=== PATIENT | male | born 1930 | race African-American/Black ===

== ENCOUNTER 2017-10-20 12:11 | Observation (INO) | payer OTHER ==
[2017-10-20 12:21] VITALS: BMI 25.7
--- NOTE | 2017-10-20 12:39 | PDOC ---
History of Present Illness - General History Source: Patient Exam Limitations: No Limitations <Lenore Rivera - Last Filed: 10/20/17 17:44> - General History Source: Patient Exam Limitations: No Limitations - History of Present Illness Initial Comments: 10/20/17 13:12 The patient is an 87 year old male with a significant past medical history of angina, COPD, prostate CA, cardiomyopathy, who presents to the emergency department [facility] complaining of chest pain that began at 10:30 am. The patient describes the chest pain as initiating on the right side, then moving to the left, then radiates to his back. He reports that he gets a headache associated with the chest pain, but does not currently endorse either symptom. The patient states that he was in rehab today when he complained of the chest pain and the nurse recommended he come be evaluated in the ED. Denies fever. Denies abdominal pain. Denies history of blood clots. Allergies: NKA Past surgical history: pacemaker Social history: No reported cigarette, alcohol, or drug use. Former cigarette smoker. PCP:unknown <Kristan Portillo - Last Filed: 10/20/17 19:11> - General Chief Complaint: Chest Pain Stated Complaint: CHEST PAIN Time Seen by Provider: 10/20/17 12:26 Past History - Past Medical History Cancer: Yes (prostate) Cardiac Disorders: (cardiomyopathy) COPD: Yes CHF: Yes - Surgical History Cardiac Surgery: Yes (pacemaker) - Immunization History Immunization Up to Date: Yes - Suicide/Smoking/Psychosocial Hx Smoking History: Unknown if ever smoked Have you smoked in the past 12 months: No Information on smoking cessation initiated: No Hx Alcohol Use: No Drug/Substance Use Hx: No Substance Use Type: None Hx Substance Use Treatment: No <Lenore Rivera - Last Filed: 10/20/17 17:44> <Kristan Portillo - Last Filed: 10/20/17 19:11> - Past Medical History Allergies/Adverse Reactions: Allergies Allergy/AdvReac Type Severity Reaction Status Date / Time No Known Allergies Allergy Verified 10/02/17 14:41 Home Medications: Ambulatory Orders Acetaminophen [Tylenol] 650 mg PO Q6H 10/20/17 Albuterol 2.5/Ipratropium 0.5 [Duoneb -] 1 neb IH QID 10/20/17 Atorvastatin Ca [Lipitor] 10 mg PO HS 10/20/17 Carvedilol [Coreg -] 25 mg PO BID 10/20/17 Cholecalciferol (Vitamin D3) [Vitamin D3 -] 5,000 unit PO DAILY 10/20/17 Digoxin 125 mcg PO DAILY 10/20/17 Docusate Sodium [Colace] 100 mg PO BID 10/20/17 Finasteride 5 mg PO DAILY 10/20/17 Fluticasone/Salmeterol [Advair 250-50 Diskus] 1 each IH BID 10/20/17 Furosemide [Lasix] 40 mg PO DAILY 10/20/17 Gabapentin 100 mg PO Q8H 10/20/17 Latanoprost 2.5 ml OU DAILY 10/20/17 Losartan Potassium 50 mg PO DAILY 10/20/17 Mag Hydrox/Al Hydrox/Simeth [Mylanta *Suspension*] 30 ml PO Q6H 10/20/17 Metolazone 2.5 mg PO DAILY 10/20/17 Oxybutynin Chloride 5 mg PO DAILY 10/20/17 Pantoprazole Sodium 40 mg PO DAILY 10/20/17 Prednisone [Deltasone] 20 mg PO DAILY 10/20/17 Warfarin Sodium [Coumadin] 4 mg PO DAILY 10/20/17 Review of Systems - Review of Systems Able to Perform ROS?: Yes Comments:: 10/20/17 13:18 GENERAL/CONSTITUTIONAL: No fever or chills. No weakness. HEAD, EYES, EARS, NOSE AND THROAT: No change in vision. No ear pain or discharge. No sore throat. CARDIOVASCULAR: (+)Chest pain. No shortness of breath. RESPIRATORY: No cough, wheezing, or hemoptysis. GASTROINTESTINAL: No nausea, vomiting, diarrhea or constipation. GENITOURINARY: No dysuria, frequency, or change in urination. MUSCULOSKELETAL: No joint or muscle swelling or pain. No neck or back pain. SKIN: No rash NEUROLOGIC: (+)Headache. No vertigo, loss of consciousness, or change in strength/sensation. ENDOCRINE: No increased thirst. No abnormal weight change. HEMATOLOGIC/LYMPHATIC: No anemia, easy bleeding, or history of blood clots. ALLERGIC/IMMUNOLOGIC: No hives or skin allergy. <Kristan Portillo - Last Filed: 10/20/17 19:11> *Physical Exam - Vital Signs Last Vital Signs Temp Pulse Resp BP Pulse Ox 97.5 F L 75 16 116/47 95 10/20/17 12:19 10/20/17 12:19 10/20/17 12:19 10/20/17 12:19 10/20/17 12:19 <Lenore Rivera - Last Filed: 10/20/17 17:44> - Vital Signs Last Vital Signs Temp Pulse Resp BP Pulse Ox 97.5 F L 75 16 116/47 95 10/20/17 12:19 10/20/17 12:19 10/20/17 12:19 10/20/17 12:19 10/20/17 12:19 - Physical Exam Comments: 10/20/17 13:19 GENERAL: Awake, alert, and fully oriented, in no acute distress HEAD: No signs of trauma EYES: PERRLA, EOMI, sclera anicteric, conjunctiva clear ENT: Auricles normal inspection, hearing grossly normal, nares patent. Moist mucosa NECK: Normal ROM, supple, no lymphadenopathy, JVD, or masses LUNGS: (+)Crackles at left lung base. Breath sounds equal, clear to auscultation bilaterally. HEART: Regular rate and rhythm, normal S1 and S2, no murmurs, rubs or gallops ABDOMEN: Soft, nontender, normoactive bowel sounds. No guarding, no rebound. No masses EXTREMITIES: Normal range of motion, no edema. No erythema or tenderness. DP/PT pulses 2+ and symmetric. Warm and well perfused. NEUROLOGICAL: Moves all extremities. Normal speech. SKIN: Warm, Dry, normal turgor, no rashes or lesions noted. <Kristan Portillo - Last Filed: 10/20/17 19:11> Heart Score/ECG Review #1 ECG reviewed & interpreted by me at: 17:45 General ECG Interpretation: Normal Rate (87) Compared to previous ECG there are: Other (paced EKG, left axis.) <Lenore Rivera - Last Filed: 10/20/17 17:44> ED Treatment Course - LABORATORY CBC & Chemistry Diagram: 10/20/17 13:01 10/20/17 13:01 <Lenore Rivera - Last Filed: 10/20/17 17:44> - LABORATORY CBC & Chemistry Diagram: 10/20/17 13:01 10/20/17 13:01 - RADIOLOGY Radiograph Interpretation: 10/20/17 15:53 Chest X-ray was reviewed by Dr. Rivera and overread by Radiology. Report: Since 10/02/2017 at 1629 hours, there is a large heart, sclerotic knob and multi lead pacemaker. There is some atelectasis at the left base. Correlation recommended. <Kristan Portillo - Last Filed: 10/20/17 19:11> Medical Decision Making - Medical Decision Making 10/20/17 12:38 87-year-old male history of hypertension CHF pacemaker afib copd chf on coumadin here from [facility] complaining of chest pain. Differential diagnoses includes pneumonia, CHF, angina or MN, plan CBC CMP EKG chest x-ray patient will likely require admission for observation rule out ACS 10/20/17 14:27 10/20/17 16:22 <Lenore Rivera - Last Filed: 10/20/17 17:44> - Medical Decision Making 10/20/17 19:11 Dr. Giles was paged at 4:36 pm and we were not paged back, decision to admit to Hospitalist. <Kristan Portillo - Last Filed: 10/20/17 19:11> *DC/Admit/Observation/Transfer - Discharge Dispostion Decision to Admit order: Yes <Lenore Rivera - Last Filed: 10/20/17 17:44> - Attestations Scribe Attestion: 10/20/17 13:20 Documentation prepared by Kristan Portillo, acting as expert medical writer for Lenore Rivera MD. <Kristan Portillo - Last Filed: 10/20/17 19:11> Diagnosis at time of Disposition: Chest pain
[2017-10-20 13:17] LABS: BASO % 0.2 % (0-2.0); EOS % 1.3 % (0-4.5); HEMATOCRIT 38.2 % (35.4-49); HEMOGLOBIN 12.8 GM/dL (11.7-16.9); LYMPH % 20.8 % (8-40); MCH 30.8 pg (25.7-33.7); MCHC 33.5 g/dl (32.0-35.9); MEAN CELL VOLUME 92.1 fl (80-96); MEAN PLT VOLUME 8.4 fl (7.5-11.1); MONO % 6.9 % (3.8-10.2); NEUT % 70.8 % (42.8-82.8); PLATELET COUNT 85 K/MM3 (134-434); RBC 4.15 M/mm3 (4.00-5.60); RDW 14.8 % (11.9-15.9); WHITE BLOOD COUNT 3.9 K/mm3 (4.0-10.0)
--- NOTE | 2017-10-20 13:20 | EKG ---
Test Reason : Blood Pressure : / mmHG Vent. Rate : 087 BPM Atrial Rate : 087 BPM P-R Int : 138 ms QRS Dur : 152 ms QT Int : 370 ms P-R-T Axes : 063 006 063 degrees QTc Int : 445 ms Atrial-sensed ventricular-paced rhythm Biventricular pacemaker detected ABNORMAL ECG WHEN COMPARED WITH ECG OF 02-OCT-2017 22:23, VENT. RATE HAS INCREASED BY 15 BPM Confirmed by AMIE CORONEL, CORDELL ([id number]) on 10/20/2017 1:20:12 PM Referred By: Confirmed By:CORDELL HOLLOWAY MD
[2017-10-20 13:50] LABS: ALBUMIN 3.2 g/dl (3.4-5.0); ANION GAP 5 (8-16); BILIRUBIN,TOTAL 0.3 mg/dL (0.2-1.0); BLOOD UREA NITROGEN 40 mg/dL (7-18); CALCIUM 8.3 mg/dL (8.5-10.1); CHLORIDE 95 mmol/L (98-107); CO2 36 mmol/L (21-32); CREATININE 1.5 mg/dL (0.7-1.3); GLUCOSE,RANDOM 89 mg/dL (74-106); SGPT/ALT 55 U/L (12-78); SODIUM 136 mmol/L (136-145); TOT PROT 6.1 g/dl (6.4-8.2)
[2017-10-20 13:52] LABS: ALK PHOS 40 U/L (45-117)
[2017-10-20 13:54] LABS: POTASSIUM 3.5 mmol/L (3.5-5.1); SGOT/AST 45 U/L (15-37)
[2017-10-20] MEDS ORDERED: ASPIRIN 81 MG CHEWABLE TABLETS PO ONE (14:32)
[2017-10-20] MEDS ORDERED: ASPIRIN 81 MG CHEWABLE TABLETS ONE (14:46)
[2017-10-20 15:05] LABS: ACTIVATED PTT 43.6 SECONDS (25.2-36.5)
[2017-10-20 15:09] LABS: INR 3.61 (0.83-1.09)
[2017-10-20 15:10] LABS: PROTHROMBIN TIME (PATIENT) 40.8 SEC (9.7-13.0)
--- NOTE | 2017-10-20 18:31 | PN ---
Teaching Attending Note Name of Resident: Zeny Serrato ATTENDING PHYSICIAN STATEMENT I saw and evaluated the patient. I reviewed the resident's note and discussed the case with the resident. I agree with the resident's findings and plan as documented. 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 chest pain R side, moves to the L side and then radiates to the back. OBJECTIVE: Vital Signs Temperature 97.5 F L 10/20/17 12:19 Pulse Rate 78 10/20/17 16:30 Respiratory Rate 20 10/20/17 16:30 Blood Pressure 128/76 10/20/17 16:30 O2 Sat by Pulse Oximetry (%) 96 10/20/17 16:30 GENERAL: NAD. AAOx3. Resting comfortably. HEENT: AT/NC. Weak R EOM during H test. No erythema, exudates noted in throat. Moist mucus membranes. NECK: Normal range of motion, supple without lymphadenopathy, JVD. +R sided neck mass, mobile, non-tender. LUNGS: Crackles in R lower lung base. No wheezes, rhonchi noted. HEART: RRR. Normal S1, S2. No murmurs, rubs, gallop noted. +chest pain, nonreproducible. ABDOMEN: Soft, not distended, normoactive bowel sounds, no guarding, No hepatomegaly or splenomegaly. Tender to palpation in RLQ. MUSCULOSKELETAL: Normal range of motion at all joints. No bony deformities or tenderness. No CVA tenderness. NEUROLOGICAL: Cranial nerves II-XII intact. Normal speech. Normal gait. PSYCHIATRIC: Cooperative. Good eye contact. Appropriate mood and affect. SKIN: Warm, dry, normal turgor, no rashes or lesions noted, normal capillary refill. CBCD WBC 3.9 K/mm3 (4.0-10.0) L 10/20/17 13:01 RBC 4.15 M/mm3 (4.00-5.60) 10/20/17 13:01 Hgb 12.8 GM/dL (11.7-16.9) 10/20/17 13:01 Hct 38.2 % (35.4-49) 10/20/17 13:01 MCV 92.1 fl (80-96) 10/20/17 13:01 MCHC 33.5 g/dl (32.0-35.9) 10/20/17 13:01 RDW 14.8 % (11.9-15.9) 10/20/17 13:01 Plt Count 85 K/MM3 (134-434) L 10/20/17 13:01 MPV 8.4 fl (7.5-11.1) 10/20/17 13:01 CMP Sodium 136 mmol/L (136-145) 10/20/17 13:01 Potassium 3.5 mmol/L (3.5-5.1) 10/20/17 13:01 Chloride 95 mmol/L (98-107) L 10/20/17 13:01 Carbon Dioxide 36 mmol/L (21-32) H 10/20/17 13:01 Anion Gap 5 (8-16) L 10/20/17 13:01 BUN 40 mg/dL (7-18) H 10/20/17 13:01 Creatinine 1.5 mg/dL (0.7-1.3) H 10/20/17 13:01 Creat Clearance w eGFR 44.27 (>60) 10/20/17 13:01 Random Glucose 89 mg/dL (74-106) D 10/20/17 13:01 Calcium 8.3 mg/dL (8.5-10.1) L 10/20/17 13:01 Total Bilirubin 0.3 mg/dL (0.2-1.0) 10/20/17 13:01 AST 45 U/L (15-37) H D 10/20/17 13:01 ALT 55 U/L (12-78) 10/20/17 13:01 Alkaline Phosphatase 40 U/L (45-117) L 10/20/17 13:01 Total Protein 6.1 g/dl (6.4-8.2) L 10/20/17 13:01 Albumin 3.2 g/dl (3.4-5.0) L 10/20/17 13:01 CARDIAC ENZYMES Creatine Kinase 67 IU/L (39-308) 10/20/17 13:01 Troponin I 0.07 ng/ml (0.00-0.05) H D 10/20/17 13:01 Current Medications Generic Name Dose Route Start Last Admin Trade Name Kiritq PRN Reason Stop Dose Admin Aspirin 81 mg 10/21/17 10:00 Ecotrin - PO DAILY [facility] Polyethylene Glycol 17 gm 10/20/17 18:30 Miralax (For Daily Use) - PO DAILY [facility] Home Medications Medication Instructions Recorded Acetaminophen [Tylenol] 650 mg PO ASDIR 10/20/17 Albuterol 2.5/Ipratropium 0.5 1 neb IH QID 10/20/17 [Duoneb -] Atorvastatin Ca [Lipitor] 10 mg PO HS 10/20/17 Carvedilol [Coreg -] 25 mg PO BID 10/20/17 Cholecalciferol (Vitamin D3) 5,000 unit PO DAILY 10/20/17 [Vitamin D3 -] Digoxin 125 mcg PO DAILY 10/20/17 Docusate Sodium [Colace] 100 mg PO BID 10/20/17 Finasteride 5 mg PO DAILY 10/20/17 Fluticasone/Salmeterol [Advair 1 each IH BID 10/20/17 250-50 Diskus] Furosemide [Lasix] 40 mg PO DAILY 10/20/17 Gabapentin 100 mg PO DAILY 10/20/17 Latanoprost 2.5 ml OU DAILY 10/20/17 Losartan Potassium 50 mg PO DAILY 10/20/17 Mag Hydrox/Al Hydrox/Simeth 30 ml PO Q6H 10/20/17 [Mylanta *Suspension*] Metolazone 2.5 mg PO DAILY 10/20/17 Oxybutynin Chloride 5 mg PO DAILY 10/20/17 Pantoprazole Sodium 40 mg PO DAILY 10/20/17 Prednisone [Deltasone] 20 mg PO DAILY 10/20/17 Warfarin Sodium [Coumadin] 4 mg PO DAILY 10/20/17 ASSESSMENT AND PLAN: Patient is a 87yo male with pmhx of CHF s/p biventricular pacemaker w/ defibrillator, COPD, cardiomyopathy, a.fib. prostate cx s/p RT and ADT, chronic thrombocytopenia, blindness in Right eye who presented with chest pain. # Acute chest pain r/o Acs , EKG zuleima, cardio consult , Silverionin q6 x2 more sets, on ASpirin # Unstable angina pain on rest and on exertion . NTP prn # Jx of HTn continue meds. # Hx of HLD continue lipitor DVT Px: Heparin sq
[2017-10-20] MEDS ORDERED: SODIUM CHLORIDE 1,000 ML IV SCH (19:15)
--- NOTE | 2017-10-20 19:32 | HP ---
CHIEF COMPLAINT: "I had chest pain since 10:30am" PCP: Dr. Marin HISTORY OF PRESENT ILLNESS: 87M pmhx of CHF s/p biventricular pacemaker w/ defibrillator, COPD, cardiomyopathy, a. 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 He says pain started on the R side, moves to the L side and then radiates to the back. He admits to having chest pain before, but this time, the radiation to the back is new to him. The chest pain occurred while he was at rehab. ER course was notable for: (1) Aspirin 162 mg PO once (2) ECG (3) PAST MEDICAL HISTORY: CHF s/p biventricular pacemaker w/ defibrillator COPD cardiomyopathy A. 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 PAST SURGICAL HISTORY: Pacemaker L eye cataract surgery 2014 Social History: Smoking: stopped in 1979, used to smoke 20 sticks/day Alcohol: denies Drugs: denies Lives at home with son, son's and family with grandchildren Family History: Denies Allergies No Known Allergies Allergy (Verified 10/02/17 14:41) HOME MEDICATIONS: Home Medications Medication Instructions Recorded Acetaminophen [Tylenol] 650 mg PO Q6H 10/20/17 Albuterol 2.5/Ipratropium 0.5 1 neb IH QID 10/20/17 [Duoneb -] Atorvastatin Ca [Lipitor] 10 mg PO HS 10/20/17 Carvedilol [Coreg -] 25 mg PO BID 10/20/17 Cholecalciferol (Vitamin D3) 5,000 unit PO DAILY 10/20/17 [Vitamin D3 -] Digoxin 125 mcg PO DAILY 10/20/17 Docusate Sodium [Colace] 100 mg PO BID 10/20/17 Finasteride 5 mg PO DAILY 10/20/17 Fluticasone/Salmeterol [Advair 1 each IH BID 10/20/17 250-50 Diskus] Furosemide [Lasix] 40 mg PO DAILY 10/20/17 Gabapentin 100 mg PO Q8H 10/20/17 Latanoprost 2.5 ml OU DAILY 10/20/17 Losartan Potassium 50 mg PO DAILY 10/20/17 Mag Hydrox/Al Hydrox/Simeth 30 ml PO Q6H 10/20/17 [Mylanta *Suspension*] Metolazone 2.5 mg PO DAILY 10/20/17 Oxybutynin Chloride 5 mg PO DAILY 10/20/17 Pantoprazole Sodium 40 mg PO DAILY 10/20/17 Prednisone [Deltasone] 20 mg PO DAILY 10/20/17 Warfarin Sodium [Coumadin] 4 mg PO DAILY 10/20/17 REVIEW OF SYSTEMS CONSTITUTIONAL: Absent: fever, chills, diaphoresis, generalized weakness, malaise, loss of appetite, weight change HEENT: blind in R eye Absent: rhinorrhea, nasal congestion, throat pain, throat swelling, difficulty swallowing, mouth swelling, ear pain, eye pain, visual changes CARDIOVASCULAR: chest pain radiating from R to L side and then to back Absent: , syncope, palpitations, irregular heart rate, lightheadedness, peripheral edema RESPIRATORY: shortness of breath a/w chest pain Absent: cough, dyspnea with exertion, orthopnea, wheezing, stridor, hemoptysis GASTROINTESTINAL: Absent: abdominal pain, abdominal distension, nausea, vomiting, diarrhea, constipation, melena, hematochezia GENITOURINARY: Absent: dysuria, frequency, urgency, hesitancy, hematuria, flank pain, genital pain MUSCULOSKELETAL: Absent: myalgia, arthralgia, joint swelling, back pain, neck pain SKIN: Absent: rash, itching, pallor HEMATOLOGIC/IMMUNOLOGIC: Absent: easy bleeding, easy bruising, lymphadenopathy, frequent infections ENDOCRINE: Absent: unexplained weight gain, unexplained weight loss, heat intolerance, cold intolerance NEUROLOGIC: headache with chest pain Absent: headache, focal weakness or paresthesias, dizziness, unsteady gait, seizure, mental status changes, bladder or bowel incontinence PSYCHIATRIC: Absent: anxiety, depression, suicidal or homicidal ideation, hallucinations. PHYSICAL EXAMINATION Vital Signs - 24 hr 10/20/17 10/20/17 10/20/17 12:19 14:00 16:30 Temperature 97.5 F L Pulse Rate 75 Pulse Rate [ 78 Apical] Respiratory 16 20 Rate Blood Pressure 116/47 Blood Pressure 128/76 [Right Arm] O2 Sat by Pulse 95 97 96 Oximetry (%) GENERAL: NAD. AAOx3. Resting comfortably. HEENT: AT/NC. Weak R EOM during H test. No erythema, exudates noted in throat. Moist mucus membranes. NECK: Normal range of motion, supple without lymphadenopathy, JVD. +R sided neck mass, mobile, non-tender. LUNGS: Crackles in R lower lung base. No wheezes, rhonchi noted. HEART: RRR. Normal S1, S2. No murmurs, rubs, gallop noted. +chest pain, nonreproducible. ABDOMEN: Soft, not distended, normoactive bowel sounds, no guarding, no rebound , no masses. No hepatomegaly or splenomegaly. Tender to palpation in RLQ. MUSCULOSKELETAL: Normal range of motion at all joints. No bony deformities or tenderness. No CVA tenderness. 5/5 muscle strength b/l u/l extremities. NEUROLOGICAL: Cranial nerves II-XII intact. Normal speech. Normal gait. PSYCHIATRIC: Cooperative. Good eye contact. Appropriate mood and affect. SKIN: Warm, dry, normal turgor, no rashes or lesions noted, normal capillary refill. Laboratory Results - last 24 hr 10/20/17 10/20/17 10/20/17 13:01 13:01 13:01 WBC 3.9 L RBC 4.15 Hgb 12.8 Hct 38.2 MCV 92.1 MCH 30.8 MCHC 33.5 RDW 14.8 Plt Count 85 L MPV 8.4 Absolute Neuts (auto) 2.7 Neutrophils % 70.8 Lymphocytes % 20.8 D Monocytes % 6.9 Eosinophils % 1.3 D Basophils % 0.2 Nucleated RBC % 0 PT with INR INR PTT (Actin FS) Sodium 136 Potassium 3.5 Chloride 95 L Carbon Dioxide 36 H Anion Gap 5 L BUN 40 H Creatinine 1.5 H Creat Clearance w eGFR 44.27 Random Glucose 89 D Calcium 8.3 L Total Bilirubin 0.3 AST 45 H D ALT 55 Alkaline Phosphatase 40 L Creatine Kinase 67 Troponin I 0.07 H D B-Natriuretic Peptide 853.08 H Total Protein 6.1 L Albumin 3.2 L 10/20/17 14:40 WBC RBC Hgb Hct MCV MCH MCHC RDW Plt Count MPV Absolute Neuts (auto) Neutrophils % Lymphocytes % Monocytes % Eosinophils % Basophils % Nucleated RBC % PT with INR 40.80 H* INR 3.61 H* D PTT (Actin FS) 43.6 Sodium Potassium Chloride Carbon Dioxide Anion Gap BUN Creatinine Creat Clearance w eGFR Random Glucose Calcium Total Bilirubin AST ALT Alkaline Phosphatase Creatine Kinase Troponin I B-Natriuretic Peptide Total Protein Albumin ECG: bi-ventricular pacemaker detected ASSESSMENT/PLAN: 87M pmhx of CHF s/p biventricular pacemaker w/ defibrillator, COPD, cardiomyopathy, a. 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 #chest pain likely 2/2 unstable angina, r/o ACS; Chest pain seems to have resolved upon exam, pt stable and comfortable during exam with no radiation to arms or neck. -admit to tele -initial trop 0.07, trend trops -cardio consulted (Dr. Burr), f/u recs -f/u repeat ECG #LES; likely prerenal, Cr 1.5 -cont NS @ 42cc/hr for gentle hydration -recheck Cr in AM -hold Lasix 40 mg PO QD and Metalazone 2.5 mg PO QD for now #CHF -hold Lasix and Metalazone for now due to LES -cont Digoxin 0.125 mcg QD -monitor fluid status #COPD -cont Prednisone 20 mg PO QD -cont Duonebs -cont Advair #Afib -hold Warfarin for now due to supratherapeutic INR 3.61 #HTN; BP stable 128/76. -hold Losartan 50 mg PO QD, nephrotoxic drug -cont Coreg 25 mg PO BID #HLD -cont Atorvastatin 10 mg PO QD #constipation -cont Miralax 17gm PO QD #FEN -NS @ 42cc/hr -monitor lytes -sodium controlled diet #PPX -DVT: hold warfarin due to supratherapeutic INR 3.61 -GI: cont Protonix 40 mg PO QD dispo -monitor on tele -med rec'd -full code Visit type - Emergency Visit Emergency Visit: Yes ED Registration Date: 10/20/17 Care time: The patient presented to the Emergency Department on the above date and was hospitalized for further evaluation of their emergent condition. - New Patient This patient is new to me today: Yes Date on this admission: 10/20/17 - Critical Care Critical Care patient: No Hospitalist Screening - Colonoscopy Questionnaire Colonoscopy Questionnaire: Colonoscopy Questionnaire - Patient: 50 - 75 years old and never had a screening colonoscopy: Unknown History of colon or rectal polyps, or CA: Unknown History of IBD, Crohn's disease or UC: Unknown History of abdominal radiation therapy as a child: Unknown - Relative: 1 with colon or rectal CA, or polyps at age 60 or younger: Unknown Colon or rectal CA diagnosed at age 45 or younger: Unknown Multiple relatives with colon or rectal CA: Unknown - Outcome: Screening Result: Negative Screen
--- NOTE | 2017-10-20 20:31 | CON.CARD ---
Consult - History of Present Illness History of Present Illness: 87M pmhx of CHF s/p biventricular pacemaker w/ defibrillator, COPD, cardiomyopathy, a. 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 He says pain started on the R side, moves to the L side and then radiates to the back. He admits to having chest pain before, but this time, the radiation to the back is new to him. The chest pain occurred while he was at rehab. - Past Medical History Cardio/Vascular: Yes: CHF, HTN, Hyperlipdemia - Alcohol/Substance Use Hx Alcohol Use: No - Smoking History Smoking history: Unknown if ever smoked Have you smoked in the past 12 months: No - Social History Usual Living Arrangement: With Spouse Home Medications - Allergies Allergies/Adverse Reactions: Allergies Allergy/AdvReac Type Severity Reaction Status Date / Time No Known Allergies Allergy Verified 10/02/17 14:41 - Home Medications Home Medications: Ambulatory Orders Acetaminophen [Tylenol] 650 mg PO Q6H 10/20/17 Albuterol 2.5/Ipratropium 0.5 [Duoneb -] 1 neb IH QID 10/20/17 Atorvastatin Ca [Lipitor] 10 mg PO HS 10/20/17 Carvedilol [Coreg -] 25 mg PO BID 10/20/17 Cholecalciferol (Vitamin D3) [Vitamin D3 -] 5,000 unit PO DAILY 10/20/17 Digoxin 125 mcg PO DAILY 10/20/17 Docusate Sodium [Colace] 100 mg PO BID 10/20/17 Finasteride 5 mg PO DAILY 10/20/17 Fluticasone/Salmeterol [Advair 250-50 Diskus] 1 each IH BID 10/20/17 Furosemide [Lasix] 40 mg PO DAILY 10/20/17 Gabapentin 100 mg PO Q8H 10/20/17 Latanoprost 2.5 ml OU DAILY 10/20/17 Losartan Potassium 50 mg PO DAILY 10/20/17 Mag Hydrox/Al Hydrox/Simeth [Mylanta *Suspension*] 30 ml PO Q6H 10/20/17 Metolazone 2.5 mg PO DAILY 10/20/17 Oxybutynin Chloride 5 mg PO DAILY 10/20/17 Pantoprazole Sodium 40 mg PO DAILY 10/20/17 Prednisone [Deltasone] 20 mg PO DAILY 10/20/17 Warfarin Sodium [Coumadin] 4 mg PO DAILY 10/20/17 Review of Systems - Review of Systems Constitutional: reports: No Symptoms Eyes: reports: No Symptoms HENT: reports: No Symptoms Neck: reports: No Symptoms Cardiovascular: reports: No Symptoms Gastrointestinal: reports: No Symptoms Genitourinary: reports: No Symptoms Breasts: reports: No Symptoms Reported Musculoskeletal: reports: No Symptoms Integumentary: reports: No Symptoms Neurological: reports: No Symptoms Endocrine: reports: No Symptoms Hematology/Lymphatic: reports: No Symptoms Psychiatric: reports: No Symptoms Vital Signs: Vital Signs Temperature 97.5 F L 10/20/17 12:19 Pulse Rate 78 10/20/17 16:30 Respiratory Rate 20 10/20/17 16:30 Blood Pressure 128/76 10/20/17 16:30 O2 Sat by Pulse Oximetry (%) 96 10/20/17 16:30 Constitutional: Yes: Well Nourished, No Distress, Calm Eyes: Yes: WNL, Conjunctiva Clear, EOM Intact HENT: Yes: WNL, Atraumatic, Normocephalic Neck: Yes: WNL, Supple, Trachea Midline Respiratory: Yes: WNL, Regular, CTA Bilaterally Gastrointestinal: Yes: WNL, Normal Bowel Sounds Renal/: Yes: WNL Cardiovascular: Yes: WNL, Regular Rate and Rhythm Musculoskeletal: Yes: WNL Extremities: Yes: WNL Integumentary: Yes: WNL Neurological: Yes: WNL, Alert, Oriented ...Motor Strength: WNL Psychiatric: Yes: WNL, Alert, Oriented - Other Data Labs, Other Data: CBC, BMP 10/20/17 13:01 10/20/17 13:01 INR, PTT INR 3.61 (0.83-1.09) H* D 10/20/17 14:40 Troponin, BNP 10/20/17 10/20/17 13:01 13:01 Troponin I 0.07 H D B-Natriuretic Peptide 853.08 H Troponin, BNP 10/20/17 10/20/17 13:01 13:01 Troponin I 0.07 H D B-Natriuretic Peptide 853.08 H Assessment/Plan - Problems (1) Acute on chronic diastolic (congestive) heart failure Code(s): I50.33 - ACUTE ON CHRONIC DIASTOLIC (CONGESTIVE) HEART FAILURE (2) LVH (left ventricular hypertrophy) Assessment/Plan: moderate LVH by 09/2017 ECHO; normal LVEF; abnormal diastolic compliance; moderate AR. Code(s): I51.7 - CARDIOMEGALY (3) Aortic regurgitation Assessment/Plan: moderate AR. Code(s): I35.1 - NONRHEUMATIC AORTIC (VALVE) INSUFFICIENCY (4) Atypical chest pain Assessment/Plan: mildly elevated TNI; normal CK. EKG: paced rhythm. Code(s): R07.89 - OTHER CHEST PAIN
[2017-10-20] MEDS: ACETAMINOPHEN 325 MG TABLET (FP) PO SCH ×2 (22:00→23:11)
[2017-10-20] MEDS ORDERED: ALBUTEROL SO4 2.5/IPRATROPIUM 0.5 INH SOL 3 ML VIAL.NEB. NEB PRN (22:00)
[2017-10-20] MEDS: GABAPENTIN 100 MG CAPSULE (FP) PO SCH (22:00)
[2017-10-20] MEDS: ATORVASTATIN CA 10 MG TABLET (FP) PO SCH (22:00)
[2017-10-20] MEDS: POLYETHYLENE GLYCOL 3350 119 GM BTL PO SCH (22:00)
[2017-10-20] MEDS: DOCUSATE SODIUM 100 MG CAPSULE (FP) PO SCH (22:00)
[2017-10-20] MEDS: CARVEDILOL 25 MG TABLET (FP) PO SCH (22:01)
[2017-10-20] MEDS: BUDESONIDE/FORMETEROL FUMARATE 80/4.5 mcg INHALER IH SCH (22:09)
[2017-10-21 06:35] LABS: BASO % 0.1 % (0-2.0); HEMATOCRIT 36.7 % (35.4-49); HEMOGLOBIN 12.4 GM/dL (11.7-16.9); LYMPH % 24.3 % (8-40); MCH 30.8 pg (25.7-33.7); MCHC 33.8 g/dl (32.0-35.9); MEAN CELL VOLUME 91.2 fl (80-96); MEAN PLT VOLUME 8.6 fl (7.5-11.1); MONO % 7.1 % (3.8-10.2); NEUT % 67.5 % (42.8-82.8); PLATELET COUNT 72 K/MM3 (134-434); RBC 4.03 M/mm3 (4.00-5.60); RDW 14.4 % (11.9-15.9); WHITE BLOOD COUNT 3.6 K/mm3 (4.0-10.0)
[2017-10-21] MEDS: GABAPENTIN 100 MG CAPSULE (FP) PO SCH ×3 (06:41→21:07)
[2017-10-21] MEDS: ACETAMINOPHEN 325 MG TABLET (FP) PO SCH ×3 (06:41→17:05)
[2017-10-21 06:59] LABS: PROTHROMBIN TIME (PATIENT) 43.7 SEC (9.7-13.0)
[2017-10-21 07:01] LABS: ACTIVATED PTT 39.4 SECONDS (25.2-36.5)
[2017-10-21 07:05] LABS: ALBUMIN 3.1 g/dl (3.4-5.0); ANION GAP 2 (8-16); BLOOD UREA NITROGEN 39 mg/dL (7-18); CALCIUM 8.6 mg/dL (8.5-10.1); CHLORIDE 97 mmol/L (98-107); CO2 38 mmol/L (21-32); CREATININE 1.4 mg/dL (0.7-1.3); GLUCOSE,RANDOM 87 mg/dL (74-106); MAGNESIUM 1.4 mg/dL (1.8-2.4); PHOSPHOROUS 3.4 mg/dL (2.5-4.9); POTASSIUM 3.8 mmol/L (3.5-5.1); SGOT/AST 33 U/L (15-37); SGPT/ALT 49 U/L (12-78); SODIUM 137 mmol/L (136-145)
[2017-10-21 07:07] LABS: ALK PHOS 38 U/L (45-117); BILIRUBIN,TOTAL 0.4 mg/dL (0.2-1.0); TOT PROT 5.8 g/dl (6.4-8.2)
[2017-10-21 07:15] LABS: INR 3.87 (0.83-1.09)
[2017-10-21] MEDS ORDERED: PNEUMOC 13-VAL CONJ-DIP CRM/PF 0.5 ML DISP.SYRIN IM ONE (08:00)
[2017-10-21] MEDS: FINASTERIDE 5 MG TABLET (FP) PO SCH (09:16)
[2017-10-21] MEDS: CHOLECALCIFEROL (VITAMIN D3) 1,000 UNIT TABLET (FP) PO SCH (09:16)
[2017-10-21] MEDS: OXYBUTYNIN CHLORIDE 5 MG TABLET PO SCH (09:16)
[2017-10-21] MEDS: predniSONE 20 MG TABLET (UD) PO SCH (09:16)
[2017-10-21] MEDS: CARVEDILOL 25 MG TABLET (FP) PO SCH ×2 (09:16→21:07)
[2017-10-21] MEDS: PANTOPRAZOLE 40 MG TABLET (FP) PO SCH (09:16)
[2017-10-21] MEDS: DIGOXIN 0.125 MG TABLET (FP) PO SCH (09:16)
[2017-10-21] MEDS: DOCUSATE SODIUM 100 MG CAPSULE (FP) PO SCH ×2 (09:16→21:07)
[2017-10-21] MEDS: POLYETHYLENE GLYCOL 3350 119 GM BTL PO SCH (09:17)
[2017-10-21] MEDS ORDERED: ASPIRIN COATED 81 MG TABLET.EC PO SCH (10:00)
[2017-10-21] MEDS: BUDESONIDE/FORMETEROL FUMARATE 80/4.5 mcg INHALER IH SCH ×2 (10:07→21:09)
--- NOTE | 2017-10-21 11:41 | PN ---
Progress Note, Physician History of Present Illness: The patient is an 87 year old male with a significant past medical history of angina, COPD, prostate CA, cardiomyopathy, who presents to the emergency department [facility] complaining of chest pain that began at 10:30 am. The patient describes the chest pain as initiating on the right side, then moving to the left, then radiates to his back. He reports that he gets a headache associated with the chest pain, but does not currently endorse either symptom. The patient states that he was in rehab today when he complained of the chest pain and the nurse recommended he come be evaluated in the ED. - Current Medication List Current Medications: Active Medications Acetaminophen (Tylenol -) 650 mg PO Q6HPO [facility] Last Admin: 10/21/17 06:41 Dose: 650 mg Albuterol/Ipratropium (Duoneb -) 1 amp NEB Q6H PRN PRN Reason: SHORTNESS OF BREATH Atorvastatin Calcium (Lipitor -) 10 mg PO HS [facility] Last Admin: 10/20/17 22:00 Dose: 10 mg Budesonide/Formoterol Fumarate (Symbicort 80/4.5mcg -) 2 puff IH BID [facility] Last Admin: 10/21/17 10:07 Dose: 2 puff Carvedilol (Coreg -) 25 mg PO BID [facility] Last Admin: 10/21/17 09:16 Dose: 25 mg Cholecalciferol (Vitamin D3 -) 5,000 unit PO DAILY [facility] Last Admin: 10/21/17 09:16 Dose: 5,000 unit Digoxin (Lanoxin -) 0.125 mg PO DAILY [facility] Last Admin: 10/21/17 09:16 Dose: 0.125 mg Docusate Sodium (Colace -) 100 mg PO BID [facility] Last Admin: 10/21/17 09:16 Dose: 100 mg Finasteride (Proscar -) 5 mg PO DAILY [facility] Last Admin: 10/21/17 09:16 Dose: 5 mg Gabapentin (Neurontin -) 100 mg PO TID [facility] Last Admin: 10/21/17 06:41 Dose: 100 mg Sodium Chloride (Normal Saline -) 1,000 mls @ 42 mls/hr IV [facility] Stop: 10/21/17 19:04 Last Admin: 10/20/17 22:02 Dose: 42 mls/hr Latanoprost (Xalatan 0.005% Eye Drops -) 1 drop OU [facility] Oxybutynin Chloride (Ditropan -) 5 mg PO DAILY [facility] Last Admin: 10/21/17 09:16 Dose: 5 mg Pantoprazole Sodium (Protonix -) 40 mg PO DAILY [facility] Last Admin: 10/21/17 09:16 Dose: 40 mg Polyethylene Glycol (Miralax (For Daily Use) -) 17 gm PO DAILY [facility] Last Admin: 10/21/17 09:17 Dose: 17 gm Prednisone (Deltasone -) 20 mg PO DAILY [facility] Last Admin: 10/21/17 09:16 Dose: 20 mg - Objective Vital Signs: Vital Signs Temperature 97.8 F 10/21/17 08:20 Pulse Rate 92 H 10/21/17 09:16 Respiratory Rate 20 10/21/17 08:22 Blood Pressure 109/49 10/21/17 08:20 O2 Sat by Pulse Oximetry (%) 97 10/21/17 08:22 Labs: CBC, BMP 10/21/17 05:30 10/21/17 05:30 INR, PTT INR 3.87 (0.83-1.09) H* 10/21/17 05:30 Problem List - Problems (1) Acute on chronic diastolic (congestive) heart failure Code(s): I50.33 - ACUTE ON CHRONIC DIASTOLIC (CONGESTIVE) HEART FAILURE (2) LVH (left ventricular hypertrophy) Assessment/Plan: moderate LVH by 09/2017 ECHO; normal LVEF; abnormal diastolic compliance; moderate AR. Code(s): I51.7 - CARDIOMEGALY (3) Aortic regurgitation Assessment/Plan: moderate AR. Code(s): I35.1 - NONRHEUMATIC AORTIC (VALVE) INSUFFICIENCY (4) Atypical chest pain Assessment/Plan: mildly elevated TNI; normal CK. EKG: paced rhythm. Code(s): R07.89 - OTHER CHEST PAIN
[2017-10-21] MEDS ORDERED: PT OWN MED DRAWER 7, Y5N ONE (21:03)
[2017-10-21] MEDS: ATORVASTATIN CA 10 MG TABLET (FP) PO SCH (21:07)
[2017-10-21] MEDS ORDERED: LATANOPROST 0.005% OPHTH SOLN 2.5ML BOTTLE OU SCH (22:00)
[2017-10-22] MEDS: GABAPENTIN 100 MG CAPSULE (FP) PO SCH ×2 (06:53→13:48)
[2017-10-22] MEDS: ACETAMINOPHEN 325 MG TABLET (FP) PO SCH ×3 (06:56→12:13)
[2017-10-22 08:04] VITALS: BP 127/49; TEMP 98
[2017-10-22] MEDS: BUDESONIDE/FORMETEROL FUMARATE 80/4.5 mcg INHALER IH SCH (09:23)
[2017-10-22] MEDS: OXYBUTYNIN CHLORIDE 5 MG TABLET PO SCH (09:23)
[2017-10-22] MEDS: FINASTERIDE 5 MG TABLET (FP) PO SCH (09:23)
[2017-10-22] MEDS: CHOLECALCIFEROL (VITAMIN D3) 1,000 UNIT TABLET (FP) PO SCH (09:23)
[2017-10-22] MEDS: CARVEDILOL 25 MG TABLET (FP) PO SCH (09:23)
[2017-10-22] MEDS: predniSONE 20 MG TABLET (UD) PO SCH (09:23)
[2017-10-22] MEDS: PANTOPRAZOLE 40 MG TABLET (FP) PO SCH (09:23)
[2017-10-22] MEDS: DIGOXIN 0.125 MG TABLET (FP) PO SCH (09:24)
[2017-10-22 09:25] VITALS: PULSE 81
[2017-10-22] MEDS: DOCUSATE SODIUM 100 MG CAPSULE (FP) PO SCH (09:25)
[2017-10-22] MEDS: POLYETHYLENE GLYCOL 3350 119 GM BTL PO SCH (09:25)
--- NOTE | 2017-10-22 10:49 | PN ---
Progress Note, Physician History of Present Illness: 87M pmhx of CHF s/p biventricular pacemaker w/ defibrillator, COPD, cardiomyopathy, a. 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 He says pain started on the R side, moves to the L side and then radiates to the back. He admits to having chest pain before, but this time, the radiation to the back is new to him. The chest pain occurred while he was at rehab. - Current Medication List Current Medications: Active Medications Acetaminophen (Tylenol -) 650 mg PO Q6HPO [facility] Last Admin: 10/22/17 06:56 Dose: 650 mg Albuterol/Ipratropium (Duoneb -) 1 amp NEB Q6H PRN PRN Reason: SHORTNESS OF BREATH Atorvastatin Calcium (Lipitor -) 10 mg PO [facility] Last Admin: 10/21/17 21:07 Dose: 10 mg Budesonide/Formoterol Fumarate (Symbicort 80/4.5mcg -) 2 puff IH BID [facility] Last Admin: 10/22/17 09:23 Dose: 2 puff Carvedilol (Coreg -) 25 mg PO BID [facility] Last Admin: 10/22/17 09:23 Dose: 25 mg Cholecalciferol (Vitamin D3 -) 5,000 unit PO DAILY [facility] Last Admin: 10/22/17 09:23 Dose: 5,000 unit Digoxin (Lanoxin -) 0.125 mg PO DAILY [facility] Last Admin: 10/22/17 09:24 Dose: 0.125 mg Docusate Sodium (Colace -) 100 mg PO BID [facility] Last Admin: 10/22/17 09:25 Dose: 100 mg Finasteride (Proscar -) 5 mg PO DAILY [facility] Last Admin: 10/22/17 09:23 Dose: 5 mg Gabapentin (Neurontin -) 100 mg PO TID [facility] Last Admin: 10/22/17 06:53 Dose: 100 mg Latanoprost (Xalatan 0.005% Eye Drops -) 1 drop OU HS [facility] Last Admin: 10/21/17 22:18 Dose: 1 drop Oxybutynin Chloride (Ditropan -) 5 mg PO DAILY [facility] Last Admin: 10/22/17 09:23 Dose: 5 mg Pantoprazole Sodium (Protonix -) 40 mg PO DAILY [facility] Last Admin: 10/22/17 09:23 Dose: 40 mg Polyethylene Glycol (Miralax (For Daily Use) -) 17 gm PO DAILY [facility] Last Admin: 10/22/17 09:25 Dose: Not Given Prednisone (Deltasone -) 20 mg PO DAILY [facility] Last Admin: 10/22/17 09:23 Dose: 20 mg - Objective Vital Signs: Vital Signs Temperature 98.0 F 10/22/17 08:02 Pulse Rate 81 10/22/17 09:24 Respiratory Rate 20 10/22/17 08:02 Blood Pressure 127/49 10/22/17 08:02 O2 Sat by Pulse Oximetry (%) 97 10/22/17 08:01 Eyes: Yes: WNL, Conjunctiva Clear, EOM Intact HENT: Yes: WNL, Atraumatic, Normocephalic Neck: Yes: WNL, Supple, Trachea Midline Cardiovascular: Yes: WNL, Regular Rate and Rhythm Respiratory: Yes: WNL, Regular, CTA Bilaterally Gastrointestinal: Yes: WNL, Normal Bowel Sounds Genitourinary: Yes: WNL Musculoskeletal: Yes: WNL Extremities: Yes: WNL Edema: Yes Integumentary: Yes: WNL Neurological: Yes: WNL, Alert, Oriented ...Motor Strength: WNL Psychiatric: Yes: WNL Labs: CBC, BMP 10/21/17 05:30 10/21/17 05:30 INR, PTT INR 3.87 (0.83-1.09) H* 10/21/17 05:30 Assessment/Plan - Problems (1) Acute on chronic diastolic (congestive) heart failure Code(s): I50.33 - ACUTE ON CHRONIC DIASTOLIC (CONGESTIVE) HEART FAILURE (2) LVH (left ventricular hypertrophy) Assessment/Plan: moderate LVH by 09/2017 ECHO; normal LVEF; abnormal diastolic compliance; moderate AR. Code(s): I51.7 - CARDIOMEGALY (3) Aortic regurgitation Assessment/Plan: moderate AR. Code(s): I35.1 - NONRHEUMATIC AORTIC (VALVE) INSUFFICIENCY (4) Atypical chest pain Assessment/Plan: mildly elevated TNI; normal CK. EKG: paced rhythm. Code(s): R07.89 - OTHER CHEST PAIN
--- NOTE | 2017-10-22 10:50 | DS ---
Physical Examination Vital Signs: Vital Signs Temperature 98.0 F 10/22/17 08:02 Pulse Rate 81 10/22/17 09:24 Respiratory Rate 20 10/22/17 08:02 Blood Pressure 127/49 10/22/17 08:02 O2 Sat by Pulse Oximetry (%) 97 10/22/17 08:01 Findings/Remarks: patient seen and examined. Chart reviewed. Awake and comfortable Denies chest pain. Constitutional: Yes: No Distress, Calm Neck: Yes: Supple Cardiovascular: Yes: Regular Rate and Rhythm Respiratory: Yes: CTA Bilaterally Gastrointestinal: Yes: Soft Edema: No Labs: CBC, BMP 10/21/17 05:30 10/21/17 05:30 Discharge Summary Reason For Visit: CHEST PAIN Current Active Problems Acute on chronic diastolic (congestive) heart failure (Acute) Aortic regurgitation (Acute) Chest pain (Acute) LVH (left ventricular hypertrophy) (Acute) Hospital Course: In summary Patient is known to me from last admission 87M pmhx of CHF s/p biventricular pacemaker w/ defibrillator, COPD, cardiomyopathy, a. 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 who Admitted due to chest pain MS ruled out patient followed by cardiology Stable for discharge Medications reviewed and reconciled INR--to be monitored Coumadin--- as per INR level Instructions given Discussed with nursing staff Discussed with director of casework services also Condition: Stable - Instructions Diet, Activity, Other Instructions: Resume previous activities Referrals: Anjel Wing MD [Primary Care Provider] - Disposition: LONGTERM FACILITY - Home Medications Comprehensive Discharge Medication List: Ambulatory Orders Acetaminophen [Tylenol] 650 mg PO Q6H 10/20/17 Albuterol 2.5/Ipratropium 0.5 [Duoneb -] 1 neb IH QID 10/20/17 Atorvastatin Ca [Lipitor] 10 mg PO HS 10/20/17 Carvedilol [Coreg -] 25 mg PO BID 10/20/17 Cholecalciferol (Vitamin D3) [Vitamin D3 -] 5,000 unit PO DAILY 10/20/17 Digoxin 125 mcg PO DAILY 10/20/17 Docusate Sodium [Colace] 100 mg PO BID 10/20/17 Finasteride 5 mg PO DAILY 10/20/17 Fluticasone/Salmeterol [Advair 250-50 Diskus] 1 each IH BID 10/20/17 Furosemide [Lasix] 40 mg PO DAILY 10/20/17 Gabapentin 100 mg PO Q8H 10/20/17 Latanoprost 2.5 ml OU DAILY 10/20/17 Losartan Potassium 50 mg PO DAILY 10/20/17 Mag Hydrox/Al Hydrox/Simeth [Mylanta Oral Suspension -] 30 ml PO Q6H 10/20/17 Metolazone 2.5 mg PO DAILY 10/20/17 Oxybutynin Chloride 5 mg PO DAILY 10/20/17 Pantoprazole Sodium 40 mg PO DAILY 10/20/17 Prednisone [Deltasone] 20 mg PO DAILY 10/20/17 Aspirin Coated [Ecotrin -] 81 mg PO DAILY tablet.ec 10/22/17 Polyethylene Glycol 3350 [Miralax 119 gm Btl -] 17 gm PO DAILY #30 bottle MDD 1 10/22/17 Warfarin Sodium [Coumadin] 3 mg PO DAILY #30 tab 10/22/17
== END 2017-10-22 14:41 ==
LOC: JER 12:11 → UNDOADMOB 16:01 → INTOOBSV 16:01 → JERBED 16:01 → J4W 18:14 → JERBED 19:30
PROVIDERS: ADMIT Internal Medicine; ATTEND Internal Medicine
PROC: 3E0F7GC Introduction of Other Therapeutic Substance into Respiratory Tract, Via Natural or Artificial Opening (ICD-10-PCS; principal; 2017-10-20)
PROC: 3E0337Z Introduction of Electrolytic and Water Balance Substance into Peripheral Vein, Percutaneous Approach (ICD-10-PCS; 2017-10-20)
PROC: 3E0234Z Introduction of Serum, Toxoid and Vaccine into Muscle, Percutaneous Approach (ICD-10-PCS; 2017-10-20)
DX: R07.89 Other chest pain (principal); I50.33 Acute on chronic diastolic (congestive) heart failure; I51.7 Cardiomegaly; I35.1 Nonrheumatic aortic (valve) insufficiency; I48.91 Unspecified atrial fibrillation; I20.0 Unstable angina; I11.0 Hypertensive heart disease with heart failure; I42.9 Cardiomyopathy, unspecified; J44.9 Chronic obstructive pulmonary disease, unspecified; E78.5 Hyperlipidemia, unspecified; N17.9 Acute kidney failure, unspecified; Z85.46 Personal history of malignant neoplasm of prostate; Z92.3 Personal history of irradiation; Z95.810 Presence of automatic (implantable) cardiac defibrillator; H54.40 Blindness, one eye, unspecified eye; Z23 Encounter for immunization
CPT/HCPCS: 36415; 71045-TC-FY; 80053; 80162; 82550; 83735; 83880; 84100; 84484; 85025; 85610; 85730; 90670; 93005; 93010; 99283-25; G0009; G0378; J7030